=== PATIENT | female | born 1980 | race American Indian/Alaskan Native ===

== ENCOUNTER → 2024-04-14 | Outpatient (CLI) | payer BC, SELFPAY ==
--- NOTE | 2024-04-14 14:22 | XR_ITS ---
Examination: Retroperitoneal ultrasound, complete Technique: Multiple high resolution grayscale images of the retroperitoneum obtained, including kidneys and bladder. Exam date and time:April 14, 2024 1438 hours INDICATIONS: Right flank pain beginning 5 days ago, history kidney stones FINDINGS: Right kidney 10.9 x 6.1 x 5.8 cm cortex 2.5 cm Mild hydronephrosis Left kidney 12.8 x 7.0 x 5.9 cm cortex 2.2 cm Mild bilateral renal parenchymal scar formation No bladder mass or bladder calculi Bladder prevoid volume 213 cc IMPRESSION: Mild right hydronephrosis Consider CT scan abdomen pelvis without contrast follow-up to assess etiology of the right hydronephrosis
== END | disposition home or self-care (01) ==
PROVIDERS: PCP Nurse Practitioner Family; Referring Provider Nurse Practitioner Family; Visit Provider Nurse Practitioner Family
DX: N13.30 Unspecified hydronephrosis (principal); Z87.448 Personal history of other diseases of urinary system; Z98.890 Other specified postprocedural states
CPT/HCPCS: 76770

== ENCOUNTER → 2024-04-16 | Outpatient (CLI) | payer BC, SELFPAY ==
--- NOTE | 2024-04-16 10:40 | XR_ITS ---
Examination: CT abdomen and pelvis without contrast. Coronal 3-D reconstructions. Sagittal 2-D reconstructions. Date and time of exam:April 16, 2024 1105 hours Comparison February 23, 2023 INDICATIONS: Renal sonogram April 14, 2024 history kidney stones, mild right hydronephrosis CTDI: vol (mGy): 21.9 DLP: (mGycm): 1290 Technique: Axial images of the abdomen have been obtained, 3 mm slice thickness Intravenous contrast material has not been administered. Low dose protocols were performed. One or more of the following dose reduction techniques were used; automated exposure control, adjustment of the mA and/or KV according to patient size, use of iterative reconstruction technique. Findings: Diffuse fatty infiltration throughout the liver Spleen is not enlarged No gallstones No pancreatic or adrenal mass Significant scarring right kidney, minimal right hydroureter no ureteral calculi Aorta normal size No bowel obstruction Normal appendix Colonic diverticulosis No pelvic mass No bladder calculi IMPRESSION: Significant scarring right kidney, minimal right hydroureter, consider right urinary tract infection
== END | disposition home or self-care (01) ==
PROVIDERS: PCP Nurse Practitioner Family; Referring Provider Nurse Practitioner Family; Visit Provider Nurse Practitioner Family
DX: N13.4 Hydroureter (principal)
CPT/HCPCS: 74176

== ENCOUNTER 2024-05-30 14:53 | Emergency (ER) | payer BC, SELFPAY ==
[2024-05-30 14:53] VITALS: BMI 49.8
[2024-05-30 15:51] VITALS: BP 130/91; PULSE 81; RESP 18; TEMP 36.6; O2SAT 95
--- NOTE | 2024-05-30 16:19 | XR_ITS ---
EXAMINATION: Ankle, 2 views Technique: Ankle AP, lateral 2 views Date and time of exam: May 30, 2024 1636 hrs. Indications: Injury to the ankle today, ankle pain. Findings: No fracture or dislocation No opaque foreign body Impression: No fracture or dislocation
--- NOTE | 2024-05-30 16:19 | PD.EDLOWEX ---
Lower Extremity Injury RME/HPI General Chief Complaint: Extremity Injury, Lower Stated Complaint: Left ankle pain Time Seen by Provider: 05/30/24 16:00 Arrival date/time: 05/30/24 14:53 Limitations: no limitations RME / HPI RME / HPI Narrative: 43yo female here for left ankle swelling and pain. states fell yesterday tried to ice and rest but thinks something is wrong. can not stand on full weight. Related Data Previous Rx's ?Medication ?Instructions ?Recorded tramadol 50 mg tablet 50 mg PO TID PRN pain #14 tabs 04/26/23 IBU 800 mg tablet (ibuprofen) 800 mg PO Q6H PRN pain #30 tabs 05/30/24 Allergies Allergy/AdvReac Type Severity Reaction Status Date / Time No Known Allergies Allergy Verified 06/04/23 08:15 Review of Systems Constitutional Constitutional: Denies fever(s) Musculoskeletal Musculoskeletal: Reports as per HPI ED Exam General Limitations: Present no limitations General appearance: Present alert and in no apparent distress Eye Eye exam: Present normal appearance, PERRL and EOMI Respiratory Respiratory exam: Present normal lung sounds bilaterally Cardiovascular Cardiovascular exam: Present regular rate, normal rhythm and normal heart sounds Extremities Exam Extremities exam: Present tenderness (non weight bearing, edema, ttp left lateral ankle ) Back Exam Back exam: Present normal inspection and full ROM Psychiatric Psychiatric exam: Present normal affect and normal mood Skin Skin exam: Present warm, dry, intact and normal color Course Quality Measures none Orders Category Date Time Status Crutches .NOW Care 05/30/24 17:42 Completed Splint / Immobilizer STAT Care 05/30/24 17:42 Completed XR ankle LT 2V Stat Exams 05/30/24 16:19 Completed HYDROcodone*/APAP 5/325 [[place] 5/325] Med 05/30/24 16:19 Discontinued 1 tab PO X1 ONE Ketorolac Inj [Toradol Inj] Med 05/30/24 16:19 Discontinued 30 mg IM X1 ONE Vital Signs Vital signs: Vital Signs Temperature 97.8 F 05/30/24 15:51 Pulse Rate 81 05/30/24 15:51 Respiratory Rate 18 05/30/24 15:51 Blood Pressure 130/91 H 05/30/24 15:51 Pulse Oximetry (%) 95 05/30/24 15:51 Oxygen Delivery Method Room Air 05/30/24 15:51 Procedures -ED Splint Fabrication: Clinician Made Type: Posterior Leg Reason for Splint: Pain Management Site condition: Bruised and Edematous Circulation Distal to Splint: Yes Movement Distal to Splint: Yes Senation Distal to Splint: Yes Tolerance: Tolerates Well Extremity Injury, Lower MDM Narrative MDM Narrative:: discussed Patient data External records reviewed:: [facility] previous records Clinical information provided by:: patient Social determinants that could affect healthcare access:: other (specify) (pcp not available weekend) Patient has the following chronic illnesses:: none How is presenting disease/condition affected by chronic disease/condition?: no chronic disease Evaluation data The following diagnostics were reviewed and interpreted by me:: radiology exam(s) Lab and/or radiology exams considered but not ordered:: all imaging considered was ordered, unlikely to benefit from ct scan Interpretation Summary: ankle wnl no fx. Medications / Prescriptions Medications or Prescriptions considered but not ordered:: all considered were sent Medication administrations:: Medication Administration History Discontinued Medications Hydrocodone Bitart/Acetaminophen (Hydrocodone/[place] 5/325 Tablet) 1 tab PO X1 ONE Stop: 05/30/24 16:20 Last Admin: 05/30/24 16:56 Dose: 1 tab Documented By: YOVANI Ketorolac Tromethamine (Ketorolac Inj 60 Mg/2 Ml Vial) 30 mg IM X1 ONE Stop: 05/30/24 16:20 Last Admin: 05/30/24 16:57 Dose: 30 mg Documented By: YOVANI see above Consultations Consultation(s) initiated? (list below): No Diagnosis Extremity Injury, Lower Differential Diagnosis: ankle sprain and strain, acute internal derangement of knee, fracture of hip, fracture of toe and ankle fracture Most likely diagnosis given after review of the tests above:: ankle sprain Admission Indicated Admission indicated?: not indicated Admission Request Was there a request for admission?: No Disposition Plan Disposition Plan: Discharge Discharge Attestation Discharge Attestation: The patient and all family members were given an opportunity to ask questions and understood the discharge instructions. Discharge instructions specifically effects, indications for sooner follow up or return to the emergency department, and the expected course of current diagnosis. Patient condition: Stable Discharge Plan Plan Patient Disposition: HOME (Self Care) Disposition Comment: Follow-up with PCP in 2 to 3 days Prescriptions/Referrals Prescriptions/Med Rec: New ibuprofen [IBU] 800 mg tablet 800 mg PO Q6H PRN (Reason: pain) Qty: 30 0RF No Action tramadol 50 mg tablet 50 mg PO TID PRN (Reason: pain) Qty: 14 0RF Referrals: Giovana Mars PA-C ([facility]) [Primary Care Provider] - In 1 week Problem List Clinical Impression: Ankle sprain and strain Patient/Caregiver Discharge Instructions Print Language: Turkmen Stand Alone Forms: Sahra Award Info., Patient Portal Info Letter PA/BRANCH SERVICE REPRESENTATIVE Supervising Physician PA/JANAE Supervising Physician: Dr Vicente
[2024-05-30] MEDS: HYDROcodone/APAP 5/325 TABLET 1 TAB PO (16:56)
[2024-05-30] MEDS: KETOROLAC INJ 60 MG/2 ML VIAL 30 MG IM (16:57)
--- NOTE | 2024-06-05 15:42 | PD.EDURI ---
Upper Respiratory Inf. RME/HPI General Chief Complaint: Extremity Injury, Lower Stated Complaint: Left ankle pain Time Seen by Provider: 05/30/24 16:00 Arrival date/time: 05/30/24 14:53 Limitations: no limitations RME / HPI RME / HPI Narrative: 43yo female here for left ankle swelling and pain. states fell yesterday tried to ice and rest but thinks something is wrong. can not stand on full weight. Related Data Previous Rx's ?Medication ?Instructions ?Recorded tramadol 50 mg tablet 50 mg PO TID PRN pain #14 tabs 04/26/23 IBU 800 mg tablet (ibuprofen) 800 mg PO Q6H PRN pain #30 tabs 05/30/24 Allergies Allergy/AdvReac Type Severity Reaction Status Date / Time No Known Allergies Allergy Verified 06/04/23 08:15 ED Exam General Limitations: Present no limitations General appearance: Present alert and in no apparent distress Course Orders Category Date Time Status Crutches .NOW Care 05/30/24 17:42 Completed Splint / Immobilizer STAT Care 05/30/24 17:42 Completed XR ankle LT 2V Stat Exams 05/30/24 16:19 Completed HYDROcodone*/APAP 5/325 [[place] 5/325] Med 05/30/24 16:19 Discontinued 1 tab PO X1 ONE Ketorolac Inj [Toradol Inj] Med 05/30/24 16:19 Discontinued 30 mg IM X1 ONE Vital Signs Vital signs: Vital Signs Temperature 97.8 F 05/30/24 15:51 Pulse Rate 81 05/30/24 15:51 Respiratory Rate 18 05/30/24 15:51 Blood Pressure 130/91 H 05/30/24 15:51 Pulse Oximetry (%) 95 05/30/24 15:51 Oxygen Delivery Method Room Air 05/30/24 15:51 Procedures -ED Splint Fabrication: Pre-Fabricated Type: Ankle Stirrup Reason for Splint: Pain Management Site condition: Edematous Circulation Distal to Splint: Yes Movement Distal to Splint: Yes Senation Distal to Splint: Yes Tolerance: Tolerates Well Upper Respiratory Infection Patient data External records reviewed:: [facility] previous records Clinical information provided by:: patient Social determinants that could affect healthcare access:: other (specify) (no pcp appt on weekend) Patient has the following chronic illnesses:: none How is presenting disease/condition affected by chronic disease/condition?: no chronic disease Evaluation data The following diagnostics were reviewed and interpreted by me:: radiology exam(s) Lab and/or radiology exams considered but not ordered:: ct scan unklike benefiical Interpretation Summary: no fractures Medications / Prescriptions Medications or Prescriptions considered but not ordered:: narcotics considered Medication administrations:: Medication Administration History Discontinued Medications Hydrocodone Bitart/Acetaminophen (Hydrocodone/Apap 5/325 Tablet) 1 tab PO X1 ONE Stop: 05/30/24 16:20 Last Admin: 05/30/24 16:56 Dose: 1 tab Documented By: YOVANI Ketorolac Tromethamine (Ketorolac Inj 60 Mg/2 Ml Vial) 30 mg IM X1 ONE Stop: 05/30/24 16:20 Last Admin: 05/30/24 16:57 Dose: 30 mg Documented By: YOVANI nsaids for home, see above Consultations Consultation(s) initiated? (list below): No Diagnosis Upper Respiratory Differential Diagnosis: other (frac) Discharge Plan Plan Patient Disposition: HOME (Self Care) Disposition Comment: Follow-up with PCP in 2 to 3 days Prescriptions/Referrals Prescriptions/Med Rec: New ibuprofen [IBU] 800 mg tablet 800 mg PO Q6H PRN (Reason: pain) Qty: 30 0RF No Action tramadol 50 mg tablet 50 mg PO TID PRN (Reason: pain) Qty: 14 0RF Referrals: Giovana Mars PA-C ([facility]) [Primary Care Provider] - In 1 week Problem List Clinical Impression: Ankle sprain and strain Patient/Caregiver Discharge Instructions Print Language: Northern Irish Stand Alone Forms: Sahra Award Info., Patient Portal Info Letter EMILY/JANAE Supervising Physician YOHANA Supervising Physician: Dr Vicente
== END 2024-05-30 17:54 | disposition home or self-care (01) ==
PROVIDERS: Emergency Provider Emergency Medicine; PCP Nurse Practitioner Family
DX: S93.402A Sprain of unspecified ligament of left ankle, initial encounter (principal); S96.912A Strain of unspecified muscle and tendon at ankle and foot level, left foot, initial encounter; W19.XXXA Unspecified fall, initial encounter
CPT/HCPCS: 29515; 73600; 96372; 99283; J1885; A9270

== ENCOUNTER → 2024-06-08 | Outpatient (CLI) | payer BC, SELFPAY ==
--- NOTE | 2024-06-08 08:15 | XR_ITS ---
Examination: Screening digital mammography, bilateral Computer aided detection 3-D breast Tomosynthesis, bilateral Date and time of exam: June 08, 2024 0807 hours Compared to mammograms dating to March 06, 2019 Indication: Screening Technique: Nonmagnified MLO, CC views of the breasts to been obtained, reconstructed from 3-D Tomosynthesis images. R2 computer aided detection program utilized for evaluation of suspicious masses and/or abnormal calcifications. 3-D Tomosynthesis images obtained. Findings: The breasts are heterogeneously dense, which may obscure small masses Benign calcifications No suspicious masses Impression: BI-RADS category II: Benign Findings. Recommend 1 year follow-up mammogram.
== END | disposition home or self-care (01) ==
LOC: CDIM 07:53
PROVIDERS: Referring Provider Nurse Practitioner Family; Visit Provider Nurse Practitioner Family
DX: Z12.31 Encounter for screening mammogram for malignant neoplasm of breast (principal); R92.323 Mammographic fibroglandular density, bilateral breasts; R92.1 Mammographic calcification found on diagnostic imaging of breast
CPT/HCPCS: 77063; 77067

== ENCOUNTER 2024-09-28 10:15 | Day surgery (SDC) | payer BC, SELFPAY ==
[2024-09-25 12:52] VITALS: BMI 51.5
--- NOTE | 2024-09-25 13:05 | EKG_ITS ---
[facility] Test Date: 2024-09-25 Pat Name: AMARIS GAYLE Department: Room: - Gender: Female Social Work Coordinator: MATTEO : 1980 Requested By: Prasanna Brooks Order Number: [id number] Reading MD: Prasanna Brooks Measurements Intervals [place] Rate: 84 P: 19 [place]: 150 QRS: 7 QRSD: 86 T: 37 QT: 344 QTc: 408 Interpretive Statements SINUS RHYTHM POSSIBLE ANTERIOR MYOCARDIAL INFARCTION , PROBABLY OLD [30 ms Q WAVE IN V3/V4, OR R < 0.2 mV IN V4] No previous ECG available for comparison /store/S0/[id number].pdf
[2024-09-25 13:14] LABS: HCG Qualitative,Urine Negative
[2024-09-25 13:19] LABS: INR 1.0 (0.9-1.3); Partial Thromboplastin Time 27.3 Seconds (22.0-36.0); Prothrombin Time 10.6 Seconds (9.0-12.2)
[2024-09-25 13:22] LABS: Alanine Aminotransferase 74 U/L (10-49); Albumin, Serum 4.6 gm/dL (3.5-5.0); Albumin/Globulin Ratio 1.3 (1.2-2.2); Alkaline Phosphatase 121 U/L (46-116); Anion Gap 9 (7-16); Aspartate Amino Transferase 52 U/L (0-34); BUN/Creatinine Ratio 19 Ratio (12-20); Bilirubin,Total 0.3 mg/dL (0.3-1.2); Blood Urea Nitrogen 13 mg/dL (9-23); Calcium 9.4 mg/dL (8.3-10.6); Calcium (Corrected) 9.4 mg/dL (8.5-10.1); Carbon Dioxide 25.1 mMol/L (20.0-31.0); Chloride 105 mMol/L (98-107); Creatinine (Component) 0.7 mg/dL (0.6-1.3); Estimated Creatinine Clearance 144.2 mL/min (>60); Globulin 3.5 gm/dL (2.3-3.5); Glucose 93 mg/dL (74-106); Osmolality,Calculated 277 (275-295); Potassium 4.4 mMol/L (3.4-5.1); Sodium 139 mMol/L (136-145); Total Protein 8.1 gm/dL (5.7-8.2); eGFR > 60 See Note
[2024-09-25 15:13] LABS: HCG,Qualitative Serum Negative
[2024-09-28] VITALS (7 sets, daily range): BP systolic 95–123; BP diastolic 59–86; PULSE 66–79; RESP 18–24; TEMP 36.3–36.6; O2SAT 94–96; BMI 51.9
[2024-09-28] MEDS: RINGERS LACTATED 1000 ML 1,000 ML 20 ML IV (14:01)
--- NOTE | 2024-09-28 14:23 | SUR.PHASEII ---
pt arrived to PACU via [facility] awake and alert, breathing unlabored, VS stable, report from Sonja SCHULTZ, Jamil JONES, and Dr Vinson.
--- NOTE | 2024-09-28 14:25 | SUR.PHASEII ---
pt able to take deep breaths and cough as instructed
--- NOTE | 2024-09-28 14:40 | SUR.PHASEII ---
pt continues to deep breathe and cough as instructed
--- NOTE | 2024-09-28 14:55 | SUR.PHASEII ---
pt continues to deep breathe and cough as instructed, pt tolerating ice chips without difficulty swallowing or n/v, discharge instructions given with spouse present, all questions answered
--- NOTE | 2024-09-28 15:05 | SUR.PHASEII ---
pt able to dress self and ambulate to wheelchair with steady gait, pt discharged via wheelchair with all belongings and copies of discharge paperwork.
== END 2024-09-28 15:05 | disposition home or self-care (01) ==
PROVIDERS: Anesthesiology; PCP Nurse Practitioner Family; Referring Provider Specialist; Visit Provider Specialist
PROC: (CPT 43239; principal; 2024-09-28 11:30)
DX: Z01.818 Encounter for other preprocedural examination (principal); K22.10 Ulcer of esophagus without bleeding; K20.90 Esophagitis, unspecified without bleeding; K44.9 Diaphragmatic hernia without obstruction or gangrene; Z01.810 Encounter for preprocedural cardiovascular examination; K29.50 Unspecified chronic gastritis without bleeding
CPT/HCPCS: 43239; 36415; 80053; 81025; 84703; 85610; 85730; 93005; J7120

== ENCOUNTER → 2025-01-04 | Outpatient (CLI) | payer BC, SELFPAY ==
--- NOTE | 2025-01-04 14:17 | XR_ITS ---
EXAMINATION: Ankle, right 3 views. Technique: Ankle AP, oblique, lateral 3 views Date and time of exam: January 04, 2025, 1508 hours INDICATIONS: Patient fell yesterday with injury to the ankle, ankle pain. FINDINGS: Acute fracture fibular tip without significant displacement No ankle dislocation IMPRESSION: Acute fracture fibular tip
--- NOTE | 2025-01-04 14:17 | XR_ITS ---
Examination: Foot, right, 3 views Technique: AP, oblique, lateral views foot, 3 views Date and time of exam: January 04, 2025: 1508 hours INDICATIONS: Patient fell yesterday with injury to the foot, foot pain. FINDINGS: No acute fracture No dislocation Please see the ankle report IMPRESSION: No acute foot fracture
== END | disposition home or self-care (01) ==
LOC: CDIM 14:04
PROVIDERS: PCP Nurse Practitioner Family; Referring Provider Nurse Practitioner Family; Visit Provider Nurse Practitioner Family
DX: S99.921A Unspecified injury of right foot, initial encounter (principal); S82.491A Other fracture of shaft of right fibula, initial encounter for closed fracture; W19.XXXA Unspecified fall, initial encounter
CPT/HCPCS: 73610; 73630